=== PATIENT | male | born 1980 ===

== ENCOUNTER 2024-10-26 20:16 | Emergency (ER) | payer OTHER, SELFPAY ==
[2024-10-26 20:18] VITALS: BP 145/122; PULSE 115; RESP 18; TEMP 36.7; O2SAT 97; BMI 21.3
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
--- NOTE | 2024-10-26 20:56 | PC.NURSE ---
Went into patient's room to speak w/ patient, patient was not there. Patient not in any bathroom. supervisor laboratory animal facility [facility] made aware. Called patient's phone number listed in chart, was not patient's phone number.
== END 2024-10-26 22:28 | disposition left against medical advice (07) ==
PROVIDERS: Emergency Provider Emergency Medicine
DX: S60.512A Abrasion of left hand, initial encounter (principal); S60.511A Abrasion of right hand, initial encounter; S40.812A Abrasion of left upper arm, initial encounter; S40.811A Abrasion of right upper arm, initial encounter; S20.319A Abrasion of unspecified front wall of thorax, initial encounter; V28.09XA Other motorcycle driver injured in noncollision transport accident in nontraffic accident, initial encounter; Y93.89 Activity, other specified; Y92.414 Local residential or business street as the place of occurrence of the external cause; Y99.8 Other external cause status; Z53.21 Procedure and treatment not carried out due to patient leaving prior to being seen by health care provider
CPT/HCPCS: 99281